=== PATIENT | female | born 1960 | race Asian ===

== ENCOUNTER 2024-12-15 23:04 | Inpatient (IN) | payer OTHER ==
[~2024-12-15] VITALS: Ht 167.6 cm; Wt 60.8 kg
[2024-12-15] MEDS: IV NS 0.9% 1,000 ML BAG IV ONE (23:31)
[2024-12-15 23:45] LABS: ALBUMIN 1.7 g/dL (3.4-5.0); BILIRUBIN,DIRECT 0.2 mg/dL (0.0-0.2); BILIRUBIN,TOTAL 0.3 mg/dL (0.2-1.0); CALCIUM, SERUM 8.5 mg/dL (8.5-10.1); CREATININE 1.5 mg/dL (0.6-1.3); POTASSIUM 5.5 mmol/L (3.5-5.1); TOTAL PROTEIN, SERUM 7.7 g/dL (6.4-8.2)
[2024-12-15 23:51] LABS: BASOPHILS # (AUTO) 0.1 K/uL (0.0-0.2); BASOPHILS % (AUTO) 0.3 % (0.0-2.0); EOSINOPHILS # (AUTO) 0.6 K/uL (0.0-0.7); EOSINOPHILS % (AUTO) 2.7 % (0.0-6.0); HEMATOCRIT 21 % (33-45); LYMPHOCYTES # (AUTO) 2.4 K/uL (0.8-4.8); LYMPHOCYTES % (AUTO) 11.6 % (20.0-44.0); MEAN CORPUSCULAR HEMOGLOBIN 27 PG (26.0-33.0); MEAN CORPUSCULAR HGB CONC 32 g/dl (31.0-36.0); MEAN CORPUSCULAR VOLUME 84 fL (82-100); MONOCYTES # (AUTO) 2.3 K/uL (0.1-1.30); MONOCYTES % (AUTO) 11.1 % (2.0-12.0); NEUTROPHILS # (AUTO) 15.6 K/uL (1.8-8.9); NEUTROPHILS % (AUTO) 74.3 % (43.0-81.0); PLATELET COUNT (AUTO) 457 K/uL (150-450); RED BLOOD CELL COUNT(AUTO) 2.48 MIL/uL (4.0-5.2); RED CELL DISTRIBUTION WIDTH 20.1 % (11.5-15.0)
[2024-12-15 23:52] LABS: INR 1.08 (0.91-1.10); PARTIAL THROMBOPLASTIN TIME 27.9 SEC (24.3-34.3); PROTHROMBIN TIME 11.4 SECS (9.2-11.1)
[2024-12-15 23:55] LABS: HEMOGLOBIN 6.7 g/dL (11.5-14.8)
[2024-12-15] MEDS ORDERED: FUROSEMIDE 20 MG/2 ML VIAL ONE (23:58)
[2024-12-15] MEDS ORDERED: CALCIUM CHLORIDE 1,000 MG/10 ML DISP.SYRIN ONE (23:59)
[2024-12-15] MEDS ORDERED: INSULIN REGULAR, HUMAN 100 UNIT/ML 10 ML VIAL ONE (23:59)
[2024-12-16] MEDS: FUROSEMIDE 40 MG/4 ML VIAL IV ONE (00:11)
[2024-12-16] MEDS: CALCIUM CHLORIDE 1,000 MG/10 ML DISP.SYRIN IV ONE (00:12)
[2024-12-16] MEDS: INSULIN REGULAR, HUMAN 100 UNIT/ML 10 ML VIAL IV ONE (00:12)
[2024-12-16 00:34] VITALS: O2SAT 98
[2024-12-16] MEDS: ALBUTEROL FS 2.5 MG/3 ML VIAL.NEB NEB ONE (00:34)
[2024-12-16 00:44] VITALS: O2SAT 100; O2SAT 99
[2024-12-16 00:53] LABS: APPEARANCE,URINE CLEAR (CLEAR); BILIRUBIN,URINE NEGATIVE (NEGATIVE); BLOOD, URINE TRACE-INTA Ery/uL (NEGATIVE); COLOR,URINE YELLOW (YELLOW); KETONES,URINE NEGATIVE (NEGATIVE); LEUKOCYTE ESTERASE ,URINE 1+ (NEGATIVE); NITRITE, URINE NEGATIVE (NEGATIVE); PROTEIN,URINE TRACE mg/dl (NEGATIVE); UGLUCOSE 1+ mg/dL (NEGATIVE); UROBILINOGEN,URINE 0.2 EU/dL (0.2)
[2024-12-16 01:00] LABS: EOSINOPHILS % (MANUAL) 7 % (0-4); LYMPHOCYTES % (MANUAL) 15 % (16-48); METAMYELOCYTES % 2 % (0-0); MONOCYTES % (MANUAL) 7 % (0-11.0); MYELOCYTES % 2 % (0-0); NEUTROPHILS % (MANUAL) 67 (42-76)
[2024-12-16 01:01] LABS: ANISOCYTOSIS 1+; PLATELET ESTIMATE ADEQUATE
[2024-12-16 01:10] LABS: ADD URINE CULTURE YES; BACTERIA,URINE Rare /HPF (None Seen); RBC,URINE 0-2 /HPF (0-2); SQUAMOUS EPITHELIAL CELL,UR None Seen /HPF (None Seen)
[2024-12-16] MEDS ORDERED: LEVOFLOXACIN 500 MG /D5W 100ML 100 ML IV ONE (02:26)
[2024-12-16] MEDS: LEVOFLOXACIN 500 MG /D5W 100ML 500 MG/100 ML PIGGYBACK IV ONE (02:34)
[2024-12-16] MEDS ORDERED: ONDANSETRON HCL/PF 4 MG/2 ML VIAL IVP PRN (03:00)
[2024-12-16] MEDS ORDERED: DEXTROSE 50%-WATER 50 ML DISP.SYRIN IV PRN (03:00)
[2024-12-16] MEDS ORDERED: IPRATROPIUM NEB FS 0.5 MG/2.5 ML AMPUL.NEB ONE (03:18)
[2024-12-16] MEDS ORDERED: ALBUTEROL FS 2.5 MG/3 ML VIAL.NEB ONE (03:18)
[2024-12-16] MEDS: BLOOD SUGAR DIAGNOSTIC 1 EACH STRIP IN SCH (08:04)
[2024-12-16] MEDS: INSULIN REGULAR, HUMAN 100 UNIT/ML 3 ML VIAL SQ PRN (08:11)
[2024-12-16 08:24] LABS: BASOPHILS % (AUTO) 0.2 % (0.0-2.0); EOSINOPHILS # (AUTO) 0.3 K/uL (0.0-0.7); EOSINOPHILS % (AUTO) 1.5 % (0.0-6.0); HEMATOCRIT 28 % (33-45); HEMOGLOBIN 8.8 g/dL (11.5-14.8); LYMPHOCYTES % (AUTO) 9.2 % (20.0-44.0); MEAN CORPUSCULAR HEMOGLOBIN 26 PG (26.0-33.0); MEAN CORPUSCULAR HGB CONC 32 g/dl (31.0-36.0); MEAN CORPUSCULAR VOLUME 83 fL (82-100); MONOCYTES # (AUTO) 1.9 K/uL (0.1-1.30); NEUTROPHILS # (AUTO) 17.1 K/uL (1.8-8.9); NEUTROPHILS % (AUTO) 80.1 % (43.0-81.0); PLATELET COUNT (AUTO) 480 K/uL (150-450); RED BLOOD CELL COUNT(AUTO) 3.32 MIL/uL (4.0-5.2); RED CELL DISTRIBUTION WIDTH 20.5 % (11.5-15.0); WHITE BLOOD COUNT (AUTO) 21.4 K/uL (4.3-11.0)
[2024-12-16 08:44] LABS: CALCIUM, SERUM 9.7 mg/dL (8.5-10.1); CREATININE 1.4 mg/dL (0.6-1.3); MAGNESIUM 2.3 mg/dL (1.8-2.4); PHOSPHORUS 4.8 mg/dL (2.5-4.9); POTASSIUM 5.4 mmol/L (3.5-5.1)
[2024-12-16] MEDS ORDERED: LACT-89 GT (09:02)
[2024-12-16] MEDS ORDERED: INSU100I26 SQ (09:02)
[2024-12-16] MEDS ORDERED: AMIN30LI66 GT (09:02)
[2024-12-16] MEDS ORDERED: WHEA144P GT (09:02)
[2024-12-16] MEDS ORDERED: GLUC1KIT IM (09:02)
[2024-12-16] MEDS ORDERED: OCTR100V SQ (09:02)
[2024-12-16] MEDS ORDERED: LOPE2TAB25 GT (09:02)
[2024-12-16] MEDS ORDERED: PANT40TA2 GT (09:02)
[2024-12-16] MEDS ORDERED: CLOP75TA15 GT (09:02)
[2024-12-16] MEDS ORDERED: ASPI-1169 GT (09:02)
[2024-12-16] MEDS ORDERED: LORA10TA7 GT (09:02)
[2024-12-16] MEDS ORDERED: FURO-145 GT (09:02)
[2024-12-16] MEDS ORDERED: FERR220S2 GT (09:02)
[2024-12-16] MEDS ORDERED: SODI473S8 TP (09:02)
[2024-12-16] MEDS ORDERED: LEVO25TA7 GT (09:02)
[2024-12-16] MEDS ORDERED: INSU100V28 SQ (09:02)
[2024-12-16] MEDS ORDERED: ACET-868 GT (09:02)
[2024-12-16] MEDS ORDERED: ATOR20TA GT (09:02)
[2024-12-16] MEDS ORDERED: MULT-594 GT (09:02)
[2024-12-16] MEDS ORDERED: IPRA3AMP22 IH (09:02)
[2024-12-16] MEDS ORDERED: LACT1CAP69 GT (09:02)
[2024-12-16] MEDS ORDERED: ACET-2030 GT (09:02)
[2024-12-16] MEDS ORDERED: PANTOPRAZOLE 40 MG VIAL ONE (09:03)
[2024-12-16] MEDS: PANTOPRAZOLE 40 MG VIAL IV SCH (09:03)
[2024-12-16] MEDS: SODIUM ZIRCONIUM CYCLOSILICATE 10 GM POWD.PACK PO SCH (11:00)
[2024-12-16] MEDS ORDERED: SODIUM ZIRCONIUM CYCLOSILICATE 10 GM POWD.PACK ONE (11:30)
[2024-12-16 11:52] LABS: ANISOCYTOSIS 2+; BAND % (MANUAL) 1 % (0.0-5.0); EOSINOPHILS % (MANUAL) 2 % (0-4); LYMPHOCYTES % (MANUAL) 7 % (16-48); MONOCYTES % (MANUAL) 5 % (0-11.0); NEUTROPHILS % (MANUAL) 85 (42-76)
[2024-12-16 11:53] LABS: PLATELET ESTIMATE INCREASED; STOMATOCYTES 1+
[2024-12-16] MEDS: IV NS 0.9% 1,000 ML IV PRN (23:31)
[2024-12-17] VITALS (8 sets, daily range): BP systolic 122–183; BP diastolic 85–100; TEMP 97.5–98.4; O2SAT 95–99
[2024-12-17] MEDS: PANTOPRAZOLE 40 MG TABLET.DR PO SCH (09:00)
[2024-12-17] MEDS ORDERED: Medication Not On Formulary EA (Ipratropium/Albuterol Sulfate (Ipratr-Albuterol 0.5-3 Mg IH PRN (09:00)
[2024-12-17] MEDS ORDERED: FERROUS SULFATE - FOR SA ONLY 330 MG/7.5 ML UDC GT SCH (09:00)
[2024-12-17] MEDS ORDERED: LEVOFLOXACIN 500 MG /D5W 100ML 500 MG in PREMIX 1 EA IV SCH (09:00)
[2024-12-17] MEDS: LEVOFLOXACIN (250MG) 250 MG TABLET PO SCH (09:05)
[2024-12-17] MEDS: ASPIRIN 81 MG TAB.CHEW GT SCH (10:08)
[2024-12-17] MEDS: LEVOTHYROXINE SODIUM 25 MCG TABLET GT SCH (10:08)
[2024-12-17] MEDS: LORATADINE 10 MG TABLET GT SCH (10:08)
[2024-12-17] MEDS: CLOPIDOGREL BISULFATE 75 MG TABLET GT SCH (10:08)
[2024-12-17] MEDS ORDERED: ALBUTEROL FS 2.5 MG/3 ML VIAL.NEB NEB PRN (10:30)
[2024-12-17] MEDS ORDERED: IPRATROPIUM NEB FS 0.5 MG/2.5 ML AMPUL.NEB NEB PRN (10:30)
[2024-12-17] MEDS: GLUCERNA 1.2 1,000 ML BOTTLE NG PRN (10:44)
[2024-12-17] MEDS: OCTREOTIDE 100 MCG/ML VIAL SQ SCH (10:58)
[2024-12-17] MEDS: INSULIN GLARGINE, 100 UNIT/ML CARTRIDGE SQ SCH (11:07)
[2024-12-17 11:08] LABS: BASOPHILS # (AUTO) 0.1 K/uL (0.0-0.2); BASOPHILS % (AUTO) 0.4 % (0.0-2.0); EOSINOPHILS # (AUTO) 0.1 K/uL (0.0-0.7); EOSINOPHILS % (AUTO) 0.9 % (0.0-6.0); HEMATOCRIT 28 % (33-45); LYMPHOCYTES # (AUTO) 1.8 K/uL (0.8-4.8); LYMPHOCYTES % (AUTO) 11.7 % (20.0-44.0); MEAN CORPUSCULAR HEMOGLOBIN 27 PG (26.0-33.0); MEAN CORPUSCULAR HGB CONC 33 g/dl (31.0-36.0); MEAN CORPUSCULAR VOLUME 83 fL (82-100); MONOCYTES # (AUTO) 1.5 K/uL (0.1-1.30); MONOCYTES % (AUTO) 9.7 % (2.0-12.0); NEUTROPHILS # (AUTO) 12.1 K/uL (1.8-8.9); NEUTROPHILS % (AUTO) 77.3 % (43.0-81.0); PLATELET COUNT (AUTO) 538 K/uL (150-450); RED BLOOD CELL COUNT(AUTO) 3.33 MIL/uL (4.0-5.2); RED CELL DISTRIBUTION WIDTH 20.6 % (11.5-15.0); WHITE BLOOD COUNT (AUTO) 15.7 K/uL (4.3-11.0)
[2024-12-17 11:27] LABS: CALCIUM, SERUM 8.8 mg/dL (8.5-10.1); CREATININE 1.4 mg/dL (0.6-1.3); POTASSIUM 4.6 mmol/L (3.5-5.1)
[2024-12-17] MEDS: INSULIN REGULAR, HUMAN 100 UNIT/ML 3 ML VIAL SQ SCH (11:38)
[2024-12-17] MEDS ORDERED: Medication Not On Formulary EA (Ipratropium/Albuterol Sulfate (Ipratr-Albuterol 0.5-3 Mg IH SCH (12:00)
[2024-12-17] MEDS: FERROUS SULFATE UDC 300 MG/5 ML UDC GT SCH (12:57)
[2024-12-17] MEDS: IPRATROPIUM NEB FS 0.5 MG/2.5 ML AMPUL.NEB NEB SCH (13:23)
[2024-12-17] MEDS: ALBUTEROL FS 2.5 MG/3 ML VIAL.NEB NEB SCH (13:23)
[2024-12-17 13:45] LABS: MAGNESIUM 2.3 mg/dL (1.8-2.4); PHOSPHORUS 5.1 mg/dL (2.5-4.9)
[2024-12-17 14:01] LABS: BASOPHILS % (AUTO) 0.3 % (0.0-2.0); EOSINOPHILS # (AUTO) 0.2 K/uL (0.0-0.7); EOSINOPHILS % (AUTO) 1.1 % (0.0-6.0); HEMATOCRIT 29 % (33-45); HEMOGLOBIN 9.3 g/dL (11.5-14.8); LYMPHOCYTES % (AUTO) 12.4 % (20.0-44.0); MEAN CORPUSCULAR HEMOGLOBIN 27 PG (26.0-33.0); MEAN CORPUSCULAR HGB CONC 32 g/dl (31.0-36.0); MEAN CORPUSCULAR VOLUME 85 fL (82-100); MONOCYTES # (AUTO) 1.7 K/uL (0.1-1.30); MONOCYTES % (AUTO) 10.5 % (2.0-12.0); NEUTROPHILS # (AUTO) 12.4 K/uL (1.8-8.9); NEUTROPHILS % (AUTO) 75.7 % (43.0-81.0); PLATELET COUNT (AUTO) 546 K/uL (150-450); RED BLOOD CELL COUNT(AUTO) 3.42 MIL/uL (4.0-5.2); RED CELL DISTRIBUTION WIDTH 20.6 % (11.5-15.0); WHITE BLOOD COUNT (AUTO) 16.3 K/uL (4.3-11.0)
[2024-12-17 16:18] LABS: ANISOCYTOSIS 1+; HYPOCHROMASIA 1+; LYMPHOCYTES % (MANUAL) 14 % (16-48); MONOCYTES % (MANUAL) 10 % (0-11.0); NEUTROPHILS % (MANUAL) 76 (42-76); PLATELET ESTIMATE ADEQUATE; STOMATOCYTES 1+
[2024-12-17] MEDS: ATORVASTATIN 10 MG TABLET GT SCH (22:47)
[2024-12-17] MEDS ORDERED: OCTREOTIDE 100 MCG/ML VIAL ONE (23:19)
[2024-12-18] VITALS (10 sets, daily range): BP systolic 147–156; BP diastolic 85–88; TEMP 97.5–98.8; O2SAT 95–99
[2024-12-18] MEDS ORDERED: PANTOPRAZOLE 40 MG/PACK PACK GT SCH (07:30)
[2024-12-18] MEDS: SODIUM ZIRCONIUM CYCLOSILICATE 10 GM POWD.PACK GT SCH (10:01)
[2024-12-18] MEDS: LEVOFLOXACIN (250MG) 250 MG TABLET GT SCH (10:02)
[2024-12-18] MEDS: PANTOPRAZOLE 40 MG/PACK PACK GT SCH (10:02)
[2024-12-18] MEDS: INSULIN GLARGINE, 100 UNIT/ML CARTRIDGE SQ SCH (10:04)
[2024-12-18 10:14] LABS: BASOPHILS # (AUTO) 0.1 K/uL (0.0-0.2); BASOPHILS % (AUTO) 0.5 % (0.0-2.0); EOSINOPHILS # (AUTO) 0.2 K/uL (0.0-0.7); EOSINOPHILS % (AUTO) 1.5 % (0.0-6.0); HEMATOCRIT 27 % (33-45); HEMOGLOBIN 8.4 g/dL (11.5-14.8); LYMPHOCYTES % (AUTO) 13.1 % (20.0-44.0); MEAN CORPUSCULAR HEMOGLOBIN 26 PG (26.0-33.0); MEAN CORPUSCULAR HGB CONC 31 g/dl (31.0-36.0); MEAN CORPUSCULAR VOLUME 84 fL (82-100); MONOCYTES # (AUTO) 1.1 K/uL (0.1-1.30); MONOCYTES % (AUTO) 7.3 % (2.0-12.0); NEUTROPHILS # (AUTO) 11.7 K/uL (1.8-8.9); NEUTROPHILS % (AUTO) 77.6 % (43.0-81.0); PLATELET COUNT (AUTO) 583 K/uL (150-450); RED BLOOD CELL COUNT(AUTO) 3.26 MIL/uL (4.0-5.2); RED CELL DISTRIBUTION WIDTH 21.1 % (11.5-15.0); WHITE BLOOD COUNT (AUTO) 15.1 K/uL (4.3-11.0)
[2024-12-18 10:30] LABS: ALBUMIN 1.8 g/dL (3.4-5.0); BILIRUBIN,TOTAL 0.3 mg/dL (0.2-1.0); CALCIUM, SERUM 8.3 mg/dL (8.5-10.1); CREATININE 1.6 mg/dL (0.6-1.3); MAGNESIUM 2.1 mg/dL (1.8-2.4); PHOSPHORUS 4.2 mg/dL (2.5-4.9); TOTAL PROTEIN, SERUM 7.5 g/dL (6.4-8.2)
[2024-12-19] VITALS (11 sets, daily range): BP systolic 156–159; BP diastolic 80–90; TEMP 97.7–99.9; O2SAT 96–99
[2024-12-19] MEDS: ACETAMINOPHEN 650 MG/SUPP.RECT RC PRN (05:17)
[2024-12-19] MEDS: Z GUARD REMEDY 4 OZ OINT TP PRN (08:53)
[2024-12-19] MEDS: THERAHONEY GEL 1.5 OZ TUBE TP SCH (11:07)
[2024-12-19 11:26] LABS: ALBUMIN 1.8 g/dL (3.4-5.0); BILIRUBIN,TOTAL 0.3 mg/dL (0.2-1.0); CALCIUM, SERUM 8.4 mg/dL (8.5-10.1); CREATININE 1.5 mg/dL (0.6-1.3); TOTAL PROTEIN, SERUM 7.4 g/dL (6.4-8.2)
[2024-12-19] MEDS: IV D5W 500 ML IV ONE (13:47)
[2024-12-19] MEDS: IV 1/2NS 1000 ML 1,000 ML IV PRN (15:41)
[2024-12-19 17:42] LABS: CALCIUM, SERUM 8.2 mg/dL (8.5-10.1); CREATININE 1.4 mg/dL (0.6-1.3); POTASSIUM 3.8 mmol/L (3.5-5.1)
[2024-12-19] MEDS ORDERED: MEROPENEM 500 MG in IV NS 0.9% 50 ML IV SCH (21:00)
[2024-12-19] MEDS ORDERED: MUPIROCIN OINT 2% 22 GM TUBE NS SCH (21:00)
[2024-12-19] MEDS: MUPIROCIN OINT 2% 22 GM TUBE NS SCH (21:12)
[2024-12-20] VITALS (13 sets, daily range): BP systolic 102–170; BP diastolic 80–89; TEMP 98.1–100; O2SAT 95–99
[2024-12-20 12:06] LABS: PTH, INTACT 91 pg/mL (15-65)
[2024-12-20 14:09] LABS: *SPE A/G RATIO 0.5 (0.7-1.7); *SPE ALBUMIN 2.2 g/dL (2.9-4.4); *SPE ALPHA-1-GLOBULIN 0.4 g/dL (0.0-0.4); *SPE ALPHA-2-GLOBULIN 1.2 g/dL (0.4-1.0); *SPE GLOBULIN, TOTAL 4.4 g/dL (2.2-3.9); *SPE M-SPIKE 0.3 g/dL (Not Observed); *SPE PROTEIN TOTAL 6.6 g/dL (6.0-8.5); *SPEGAMMA GLOBULIN 1.8 g/dL (0.4-1.8)
[2024-12-20] MEDS ORDERED: INSU100I30 SQ (15:49)
[2024-12-20] MEDS ORDERED: MERO500V23 IV (15:49)
[2024-12-20] MEDS: hydrALAZINE HCL 25 MG TABLET PO PRN (17:00)
[2024-12-20] MEDS ORDERED: MEROPENEM 500 MG in IV NS 0.9% 50 ML IV SCH (19:00)
[2024-12-20] MEDS: MEROPENEM 1 G in IV NS 0.9% 100 ML IV SCH (19:00)
== END 2024-12-20 21:17 | DRG 463 ==
LOC: ER 23:14 → TRANSITION 12-16 06:38 → TELE 12-17 03:49 → MED 12-17 13:57
PROVIDERS: ADMIT Internal Medicine; ATTEND Nurse Practitioner Family
PROC: 30233N1 Transfusion of Nonautologous Red Blood Cells into Peripheral Vein, Percutaneous Approach (ICD-10-PCS; principal; 2024-12-16)
DX: N39.0 Urinary tract infection, site not specified (principal); N17.0 Acute kidney failure with tubular necrosis; G93.41 Metabolic encephalopathy; L89.153 Pressure ulcer of sacral region, stage 3; E87.0 Hyperosmolality and hypernatremia; G70.9 Myoneural disorder, unspecified; D63.8 Anemia in other chronic diseases classified elsewhere; E88.09 Other disorders of plasma-protein metabolism, not elsewhere classified; I42.9 Cardiomyopathy, unspecified; E11.22 Type 2 diabetes mellitus with diabetic chronic kidney disease; I12.9 Hypertensive chronic kidney disease with stage 1 through stage 4 chronic kidney disease, or unspecified chronic kidney disease; L97.919 Non-pressure chronic ulcer of unspecified part of right lower leg with unspecified severity; B96.20 Unspecified Escherichia coli [E. coli] as the cause of diseases classified elsewhere; E03.9 Hypothyroidism, unspecified; E11.65 Type 2 diabetes mellitus with hyperglycemia; E11.9 Type 2 diabetes mellitus without complications; I10 Essential (primary) hypertension; I25.10 Atherosclerotic heart disease of native coronary artery without angina pectoris; E11.40 Type 2 diabetes mellitus with diabetic neuropathy, unspecified; E11.622 Type 2 diabetes mellitus with other skin ulcer; Z88.1 Allergy status to other antibiotic agents; Z88.8 Allergy status to other drugs, medicaments and biological substances; K75.81 Nonalcoholic steatohepatitis (NASH); Z86.73 Personal history of transient ischemic attack (TIA), and cerebral infarction without residual deficits; R13.10 Dysphagia, unspecified; Z93.1 Gastrostomy status; E87.5 Hyperkalemia; Z87.19 Personal history of other diseases of the digestive system; M89.8X9 Other specified disorders of bone, unspecified site; E86.9 Volume depletion, unspecified; E78.5 Hyperlipidemia, unspecified; M62.472 Contracture of muscle, left ankle and foot; M62.471 Contracture of muscle, right ankle and foot; N18.9 Chronic kidney disease, unspecified; Z16.12 Extended spectrum beta lactamase (ESBL) resistance; L27.0 Generalized skin eruption due to drugs and medicaments taken internally; T36.1X5A Adverse effect of cephalosporins and other beta-lactam antibiotics, initial encounter; Y92.230 Patient room in hospital as the place of occurrence of the external cause
CPT/HCPCS: 36415; 71045-TC; 76700-TC; 80048-TC; 80053-TC; 80076-TC; 81001; 82010-TC; 82550-TC; 82962-TC; 83735-TC; 83970; 84100-TC; 84155; 84165; 85025-TC; 85730-TC; 86850-TC; 87081-TC; 87086-TC; 93970-TC; 94760-TC; 94799-TC; A4216; A4223; A6403; G0378; J1815; J1940; J1956; J2185; J2354; J2405; J2470; J3490; J7030; J7050; J7060; P9016